=== PATIENT | male | born 1990 | race Two or more races ===

== ENCOUNTER 2018-05-03 15:27 | Emergency (ER) | payer OTHER ==
[~2018-05-03] VITALS: Ht 182.9 cm; Wt 72.6 kg
[2018-05-03 15:32] VITALS: BP 133/85
--- NOTE | 2018-05-03 15:56 | NUR ---
Patient discharged to home in stable condition. Written and verbal after care instructions given. Patient verbalizes understanding of instruction.
== END 2018-05-03 16:00 ==
LOC: ER 15:33
DX: S40.811A Abrasion of right upper arm, initial encounter (principal); X58.XXXA Exposure to other specified factors, initial encounter; Y93.89 Activity, other specified; Y92.89 Other specified places as the place of occurrence of the external cause; Y99.8 Other external cause status
CPT/HCPCS: 99283; A4606; Z7610